=== PATIENT | male | born 1950 | race Caucasian/White ===

== ENCOUNTER → 2022-06-21 07:37 | Outpatient (BNVA) | payer MEDICARE, OTHER, SELFPAY | PROVIDERS: Visit Provider Otolaryngology | DX: E04.1 Nontoxic single thyroid nodule (principal); M25.462 Effusion, left knee | CPT/HCPCS: 73560; 73565; 99203 ==

== ENCOUNTER → 2022-06-27 07:49 | Outpatient (BNVA) | payer MEDICARE, OTHER, SELFPAY | PROVIDERS: Visit Provider Surgery | DX: Z12.11 Encounter for screening for malignant neoplasm of colon (principal) | CPT/HCPCS: 99203 ==

== ENCOUNTER 2022-07-03 08:23 | Outpatient (CLI) | payer MEDICARE, OTHER, SELFPAY ==
--- NOTE | 2022-07-03 | MR_ITS ---
WS: [id number] MRI BRAIN WITH AND WITHOUT CONTRAST HISTORY: SUBDURAL HEMATOMA COMPARISON: None available. TECHNIQUE: Multiplanar imaging performed through the brain with MultiHance 20 ml's IV. No acute infarcts are seen. Yancey-white matter differentiation is well preserved. Minimal small vessel ischemic type changes in the periventricular white matter. No prior infarct. No inferior displacemen t of cerebellar tonsils. No susceptibility artifacts or prior lacunar infarcts. Ventricles and extra-axial spaces are normal. Clivus and pituitary gland are normal. Visualized posterior fossa and brainstem are also normal. No enhancing masses. Small venous angiomas LEFT temporal lobe. Dural venous sinuses are normal. Paranasal sinuses: Well aerated with no significant disease. Mastoid air cells: Normal. Calvarium and scalp: Normal. MR/MR head wo/w con [id number] IMPRESSION: 1. No acute infarct and no acute hemorrhage. 2. Very minimal small vessel ischemic type changes. No large territory infarct . 3. LEFT temporal lobe venous angioma is x2. 4. No mass.
[2022-07-03] MEDS: gadobenate dimeglumine 20 mL vial IV (09:38)
== END 2022-07-03 08:24 | disposition home or self-care (01) ==
PROVIDERS: PCP Family Medicine; Visit Provider Family Medicine
DX: H53.2 Diplopia (principal)
CPT/HCPCS: 70553; A9577

== ENCOUNTER 2022-07-11 07:37 | Outpatient (CLI) | payer MEDICARE, OTHER, SELFPAY ==
--- NOTE | 2022-07-11 08:00 | US_ITS ---
WS: [id number] THYROID ULTRASOUND HISTORY: thyroid nodule COMPARISON: None available. Right lobe: 2.1 cm x 1.7 cm x 4.2 cm (w x ap x l). Volume: 7.6 cm3. Normal size gland. Colloid cyst anterior superior pole. There are a few additional colloid cysts with shadowing and a few scattered calcifications. Hypoechoic, subcentimeter nodules scattered within the gland. These nodules are less than a centimeter. Left lobe: 2.6 cm x 2.7 cm x 6.2 cm (w x ap x l). Volume: 22.5 cm3. Enlarged nodular thyroid. There is a large solid mass with a few scattered calcifications in the mid gland measuring 2.2 x 2.6 x 3.4 cm. No additional masses. Isthmus: 0.7 cm. US/US thyroid 82886 IMPRESSION: 1. Large solid mass mid to lower LEFT thyroid. Recommend fine-needle aspiratio n for cytology. 2. Subcentimeter RIGHT thyroid nodules. No additional evaluation necessary.
== END 2022-07-11 07:38 | disposition home or self-care (01) ==
LOC: RAD 07:41
PROVIDERS: PCP Family Medicine; Visit Provider Otolaryngology
DX: E04.1 Nontoxic single thyroid nodule (principal)
CPT/HCPCS: 76536

== ENCOUNTER 2022-07-13 05:44 | Day surgery (SDC) | payer MEDICARE, OTHER, SELFPAY ==
[2022-07-11 11:15] VITALS: BMI 27.1
[2022-07-13 06:01] VITALS: BP 144/92; PULSE 76; RESP 18; TEMP 36.4; O2SAT 95
[2022-07-13] MEDS: sodium chloride 0.9% 1,000 ML 30 ML IV (06:12)
--- NOTE | 2022-07-13 06:50 | W.PM.OPSUD ---
Surgery/Procedure H&P Update DATE OF PROCEDURE: July 13, 2022 DATE H&P PERFORMED: 06/27/22 H&P UPDATE INFORMATION: I have reviewed H&P completed within last 30 days, I have examined patient prior to procedure and No changes to prior documentation PLANNED PROCEDURE: Operation Date: 07/13/22 07:00 [place] Procedures p [id number] colon Z12.11(Not Applicable) - Bernardo Hernandez,
--- NOTE | 2022-07-13 06:55 | ANES.PREANE2 ---
Pre-Anesthetic Assessment Height/Weight: Height 1.83 m Weight 90.718 kg Temp Pulse Resp BP Pulse Ox O2 Del Method 97.6 F 76 18 144/92 95 Room Air 07/13/22 06:01 07/13/22 06:01 07/13/22 06:01 07/13/22 06:01 07/13/22 06:01 07/13/22 06:01 Preop Diagnosis: screening Operation Date: 07/13/22 07:00 Proposed Procedures p 16989 colon Z12.11(Not Applicable) - Bernardo Hernandez DO Familial anesthetic complications: none Was Beta Dale taken within 24 hours: Yes Was Clonidine taken within 24 hours: N/A Last intake: Intake Last Liquid Date 07/12/22 Last Liquid Time 19:00 Last Solid Date 07/11/22 Last Solid Time 16:00 Last Intake: 19:00 Social No alcohol and No tobacco Exam alert, oriented x 3, clear to auscultation bilaterally and regular rate & rhythm Airway Submandibular: within normal limits Cervical ROM: within normal limits Mallampati: Class I Dentition: full Pulmonary None reported CV/HEM Hypertension None reported Hepatic None reported GI None reported Metabolic Thyroid Disease (nodule) Musc/skel Lower Back Pain Neuropsych None reported Anesthetic Plan ASA status: 2 Anesthesia: MAC Risk of > 500 ml blood loss (7ml/kg in children): No Medications/Allergies Home Medications Medication Instructions Recorded Confirmed Last Taken Type atorvastatin 40 mg tablet 40 mg PO DAILY 06/21/22 07/13/22 07/12/22 History carvedilol 12.5 mg tablet 12.5 mg PO BID 06/21/22 07/13/22 07/12/22 History lisinopril 40 mg tablet 40 mg PO DAILY 06/21/22 07/13/22 07/12/22 History psyllium husk 0.4 gram capsule 0.4 g PO DAILY PRN Constipation 06/27/22 07/13/22 07/11/22 History (Metamucil) Allergies Allergy/AdvReac Type Severity Reaction Status Date / Time No Known Allergies Allergy Verified 06/27/22 07:54 Current Medications Generic Name Dose Route Start Last Admin Trade Name Freq PRN Reason Stop Dose Admin Sodium Chloride 1,000 mls @ 30 mls/hr 07/13/22 06:00 07/13/22 06:12 Sodium Chloride 0.9% IV 07/14/22 05:59 30 mls/hr .Q24H TED Administration PFSH Anesthesia Medical History (Updated 06/27/22 @ 08:35 by Bernardo Hernandez DO) Hx of subdural hematoma 2 yrs ago Hyperlipemia Hypertension Thyroid nodule Surgical History (Updated 06/27/22 @ 08:35 by Bernardo Hernandez DO) History of colon resection 4-5 years ago in [facility] Hx of cataract surgery bilateral also had floaters removed Hx of colonoscopy with polypectomy 4-5 year ago- [place] Family History Mother , age 59 Cancer melenoma Grandfather Cancer Father Cancer Grandmother Diabetes Social History Smoking and tobacco status: never smoked Alcohol intake: never Data Anesthesia Cardiac Studies: No Data to Display
[2022-07-13 07:22] VITALS: BP 92/65; PULSE 78; RESP 16; TEMP 36.6; O2SAT 93
[2022-07-13 07:30] VITALS: BP 88/62; PULSE 77; RESP 16; O2SAT 94
[2022-07-13 07:43] VITALS: BP 87/69; PULSE 76; RESP 18; O2SAT 93
--- NOTE | 2022-07-13 13:57 | ANE.PACU2 ---
Inpatient post-anesthesia follow up: Airway intact: Yes Vital signs: Temperature 97.9 F Pulse Rate 76 Respiratory Rate 18 Blood Pressure 87/69 Pulse Oximetry 93 Oxygen Delivery Me thod Room Air Oxygen Flow Rate 3.5 Fraction of Inspir ed Oxygen Hydration adequate: Yes Nausea and vomiting: No Pain level: 2 Mental status: Baseline
== END 2022-07-13 08:08 | disposition home or self-care (01) ==
PROVIDERS: PCP Family Medicine; Visit Provider Surgery
PROC: 0DJD8ZZ Inspection of Lower Intestinal Tract, Via Natural or Artificial Opening Endoscopic (ICD-10-PCS; CPT 45378; principal; 2022-07-13 07:00)
DX: Z12.11 Encounter for screening for malignant neoplasm of colon (principal); Z86.010 Personal history of colon polyps; E78.5 Hyperlipidemia, unspecified; E04.1 Nontoxic single thyroid nodule; Z80.0 Family history of malignant neoplasm of digestive organs; K63.5 Polyp of colon
CPT/HCPCS: 45385; J2704; J7030

== ENCOUNTER 2022-07-18 09:05 | Outpatient (CLI) | payer MEDICARE, OTHER, SELFPAY ==
--- NOTE | 2022-07-18 09:30 | CT_ITS ---
WS: [id number] CT LEFT KNEE, NONCONTRAST TECHNIQUE: Noncontrast CT of the LEFT knee to include the LEFT hip and ankle. [facility] CLINICAL INFORMATION: pre op planning COMPARISON: None. DLP: 1094.[address] scans at [facility] use at least one of these dose optimization techniques: automated e xposure control; mA and/or kV adjustment per patient size (includes targeted exams where dose is matc hed to clinical indication); or iterative reconstruction. FINDINGS: Advanced tricompartmental arthritis LEFT knee. Hypertrophic patella. Soft tissue edema about the LEFT knee. Moderate suprapatellar effusion. Hypertrophic changes along the joint line. Advanced joint spa ce narrowing worse medial joint compartment with subchondral sclerosis. Incidental fat-containing LEF T inguinal hernia. Sigmoid diverticulosis. Markedly enlarged prostate measuring 4.5 x 4.9 CM. Prostat e calcification. Moderate to advanced degenerative arthritis LEFT hip with subchondral cystic change. Small popliteal cyst with a few calcified loose bodies. CT/CT knee [facility] IMPRESSION: Images obtained for preoperative purposes. Markedly enlarged prostate measuring 4.5 x 4.9 CM. Recommend correlation PSA.
== END 2022-07-18 09:06 | disposition home or self-care (01) ==
LOC: RAD 09:09
PROVIDERS: PCP Family Medicine; Visit Provider Orthopaedic Surgery
DX: Z01.818 Encounter for other preprocedural examination (principal)
CPT/HCPCS: 73700

== ENCOUNTER 2022-08-18 06:36 | Outpatient (CLI) | payer MEDICARE, OTHER, SELFPAY | END 2022-08-18 06:37 | disposition home or self-care (01) | LOC: RADOUTREAD 09-01 06:37 | PROVIDERS: PCP Family Medicine; Visit Provider Orthopaedic Surgery | DX: Z01.818 Encounter for other preprocedural examination (principal); I44.0 Atrioventricular block, first degree; R00.1 Bradycardia, unspecified | CPT/HCPCS: 93005 ==

== ENCOUNTER 2022-08-28 10:24 | Observation (INO) | payer MEDICARE, OTHER, SELFPAY ==
--- NOTE | 2022-08-18 10:45 | ECG_ITS ---
[facility] Test Date: 2022-08-18 Pat Name: Yousuf Jaquez Department: Room: Gender: Male [employer]: : 1950 Requested By: Missael Fay Order Number: [id number] Anselmo MD: Ca Altman M.D. Measurements Intervals [place] Rate: 52 P: 26 ID: [id number] QRS: 22 QRSD: 97 T: 29 QT: 415 QTc: 388 Interpretive Statements SINUS BRADYCARDIA WITH FIRST DEGREE AV BLOCK LOW QRS VOLTAGE IN PRECORDIAL LEADS [QRS DEFLECTION < 1.0 mV IN CHEST LEADS] No previous ECG available for comparison Electronically Signed On 08-18-2022 12:30:40 CDT by Ca Altman M.D. [id number]
[2022-08-18 11:10] LABS: Basophils # 0.1 10^3/uL (0.0-0.1); Basophils % 1.1 %; Eosinophils # 0.3 10^3/uL (0.0-0.8); Eosinophils % 5.9 %; Hematocrit 42.6 % (42.0-52.0); Lymphocytes # 1.2 10^3/uL (0.8-4.8); Lymphocytes % 21.6 %; Mean Corpuscular HGB Conc 32.9 g/dL (30.0-36.0); Mean Corpuscular Hemoglobin 30.8 pg (28.0-34.0); Mean Corpuscular Volume 93.6 fl (80-94); Mean Platelet Volume 9.4 fL (7.4-10.4); Monocytes # 0.8 10^3/uL (0.2-0.9); Monocytes % 14.3 %; Neutrophils # 3.11 10^3/uL (1.8-7.7); Neutrophils % 56.9 %; Nucleated Red Blood Cells % 0 %; Platelet Count 179 10^3/cmm (130-400); Red Blood Count 4.55 10^6/uL (4.1-5.3); Red Cell Distribution Width 12.6 % (12.1-15.1); White Blood Count 5.5 10^3/uL (4.0-10.0)
[2022-08-18 11:28] LABS: Alanine Aminotransferase 21 U/L (0-41); Albumin Level 3.8 g/dL (3.5-5.2); Alkaline Phosphatase 116 U/L (40-130); Anion Gap 14.3 (5-19); Aspartate Amino Transferase 22 U/L (0-40); Blood Urea Nitrogen 11 mg/dL (8-23); Carbon Dioxide 22 mmol/L (22-29); Chloride 106 mmol/L (98-107); Globulin 1.9 g/dL (1.3-4.6); Glucose 89 mg/dL (65-115); Osmolality Calculated 285 mOsm/kg (285-295); Potassium 4.3 mmol/L (3.5-5.1); Sodium 138 mmol/L (136-145); Total Bilirubin 0.7 mg/dL (0.15-1.2); Total Protein 5.7 g/dL (6.6-8.7)
[2022-08-18 11:34] LABS: Creatinine Clr Calc Pharmacy 94.9291
[2022-08-18 11:59] LABS: Bacteria Urine TRACE /hpf; Bilirubin Urine Neg (Negative); Blood Urine Neg (Negative); Glucose Urine UA Norm (Normal); Ketones Urine Negative (Negative); Leukocyte Esterase Urine Negative (Negative); Nitrate Urine Negative (Negative); Protein Urine Neg (Negative); Specific Gravity, Urine 1.025 (1.005-1.030); Urine Appearance Clear (CLEAR); Urine Color Yellow (Yellow); Urobilinogen Urine Norm (Negative); WBC Urine 0-4 /hpf (0-5); pH Urine 5 (5-7)
--- NOTE | 2022-08-18 14:41 | P.ANESASSM_ITS ---
Pre-Anesthetic Assessment Height/Weight: Height 1.83 m Weight 90.718 kg Operation Date: 08/28/22 07:00 Proposed Procedures p left TKA roberto carlos/ [id number],M17.12(Left) - Missael Fay MD Familial anesthetic complications: none Was Beta Dale taken within 24 hours: Yes Was Clonidine taken within 24 hours: N/A Social No alcohol and No tobacco Exam alert, oriented x 3, clear to auscultation bilaterally and regular rate & rhythm Airway Submandibular: within normal limits Cervical ROM: within normal limits Mallampati: Class II Dentition: caps CV/HEM Hypertension Metabolic Hyperlipidemia Anesthetic Plan ASA status: 3 Anesthesia: Regional (specify below) (SAB with adductor blk) Medications/Allergies Home Medications Medication Instructions Recorded Confirmed Last Taken Type atorvastatin 40 mg tablet 40 mg PO DAILY 06/21/22 08/18/22 08/18/22 History carvedilol 12.5 mg tablet 12.5 mg PO BID 06/21/22 08/18/22 08/18/22 History lisinopril 40 mg tablet 40 mg PO DAILY 06/21/22 08/18/22 08/18/22 History psyllium husk 0.4 gram capsule 0.4 g PO DAILY PRN Constipation 06/27/22 08/18/22 08/18/22 History (Metamucil) Allergies Allergy/AdvReac Type Severity Reaction Status Date / Time No Known Allergies Allergy Verified 08/18/22 10:24 [facility] Anesthesia Medical History Hx of subdural hematoma 2 yrs ago Hyperlipemia Hypertension Thyroid nodule Surgical History History of colon resection 4-5 years ago in [facility] Hx of cataract surgery bilateral also had floaters removed Hx of colonoscopy with polypectomy 4-5 year ago- [place] Family History Mother , age 59 Cancer melenoma Grandfather Cancer Father Cancer Grandmother Diabetes Social History Smoking and tobacco status: never smoked Alcohol intake: never Data Anesthesia 08/18/22 10:48 08/18/22 10:48 Short CBC 08/18/22 Range/Units 10:48 WBC 5.5 (4.0-10.0) 10^3/uL Hgb 14.0 (11.7-16.6) g/dL Hct 42.6 (42.0-52.0) % MCV 93.6 (80-94) fl Plt Count 179 (130-400) 10^3/cmm Neut % (Auto) 56.9 % Neut # (Auto) 3.11 (1.8-7.7) 10^3/uL BMP 08/18/22 10:48 Sodium 138 Potassium 4.3 Chloride 106 Carbon Dioxide 22 BUN 11 Creatinine 0.6 L Glucose 89 Calcium 9.0 Liver Function 08/18/22 Range/Units 10:48 Total Bilirubin 0.7 (0.15-1.2) mg/dL AST 22 (0-40) U/L ALT 21 (0-41) U/L Alkaline Phosphatase 116 (40-130) U/L Albumin 3.8 (3.5-5.2) g/dL Urine 08/18/22 Range/Units 10:48 Urine Color Yellow (Yellow) Urine Appearance Clear (CLEAR) Urine pH 5 (5-7) Ur Specific [place] 1.025 (1.005-1.030) Urine Protein Neg (Negative) Urine Glucose (UA) Norm (Normal) Urine Ketones Negative (Negative) Urine Nitrate Negative (Negative) Urine Bilirubin Neg (Negative) Ur Leukocyte Esterase Negative (Negative) Urine RBC None (0-2) /hpf Urine WBC 0-4 H (0-5) /hpf Cardiac Studies: No Data to Display
[2022-08-28] VITALS (20 sets, daily range): BP systolic 116–166; BP diastolic 62–91; PULSE 53–87; RESP 12–18; TEMP 36.3–36.8; O2SAT 90–99
[2022-08-28] MEDS: sodium chloride 0.9% 1,000 ML 30 ML IV (05:53)
[2022-08-28] MEDS: acetaminophen 500 mg Tablet 1000 MG PO ×3 (05:56→21:09)
[2022-08-28] MEDS: gabapentin 300 mg Capsule PO (05:57)
[2022-08-28] MEDS: oxyCODONE 20 mg ER (12 HR) Tablet PO (05:58)
[2022-08-28] MEDS: CELEcoxib 200 mg Capsule 400 MG PO (05:59)
--- NOTE | 2022-08-28 06:49 | P.ANESUD_ITS ---
Pre-Anesthetic Update Pre-Anesthetic Assessment: Date of Surgery/Procedure: 08/28/22 Preop Jigna gnosis: Osteoarthritis left knee Proposed Procedure: Operation Date: 08/28/22 07:00 Proposed Procedures p left TKA roberto carlos/ [id number],M17.12(Left) - Missael Fay MD Any changes to Pre-Anesthetic Assessment?: No Last Intake: Intake Last Liquid Date 08/27/22 Last Liquid Time 18:30 Last Solid Date 08/27/22 Last Solid Time 14:00 Vitals: Temperature 97.8 F 08/28/22 05:42 Temperature Source Temporal Artery S can 08/28/22 05:42 Pulse Rate 60 08/28/22 05:42 Respiratory Rate 16 08/28/22 05:58 Respiratory Effort Spontaneous 08/28/22 05:58 Respiratory Depth Normal 08/28/22 05:58 Respiratory Patter n Normal 08/28/22 05:58 Blood Pressure 166/85 08/28/22 05:42 Blood Pressure Tamra n 112 08/28/22 05:42 Pulse Oximetry 95 08/28/22 05:58 Oxygen Delivery Me thod Room Air 08/28/22 05:42 Exam: Pre-Anes Outpt Exam: alert, oriented x 3, clear to auscultation bilaterally and regular rate & rhythm Cardiac Studies: No Data to Display
--- NOTE | 2022-08-28 06:50 | ANES.PROC ---
Anesthesia Procedures Procedure/Date: 08/28/22 Nerve Block ^: Nerve Block 1: Main Anesthesia: spinal anesthesia block Time Out Performed: Yes Consent: requested by attending/covering physician, from patient, from other, risks and benefits reviewed and patient agrees to proceed Nerve block location: adductor canal (L) Anesthesia monitors applied: pulse oximetry, EKG, BP cuff and oxygen Nerve block position: supine Anesthetic Used: ropivicaine 0.5% (30 ml) and with decadron ( 4 mg) Ultrasound used to: visualize and ID femerol nerve Nerve Stimulator Used?: No Interscalene/Femoral BLK: 4 stimuplex 21 g needle used for position and inplane approach, visualize local anesthetic spread and no vascular puncture identified Injection: neg aspiration of heme Patient Tolerated Procedure: well Complications: none
--- NOTE | 2022-08-28 06:52 | W.PM.OPSFHP ---
Same Day Surgery H&P Indication for Procedure/HPI DATE OF PROCEDURE: August 28, 2022 CHIEF COMPLAINT/INDICATIONFOR SURGICAL PROCEDURE: Osteoarthritis left knee here for total knee arthroplasty PREOP DIAGNOSIS: Osteoarthritis left knee PLANNED PROCEDURE: Operation Date: 08/28/22 07:00 Proposed Procedures p left TKA roberto carlos/ [id number],M17.12(Left) - Missael Fay MD 72-year-old male with left knee pain for years. Pain is typically medial and worse with ambulating and walking. Has failed to improve with medication and injections. Recurrent bouts of instability. Resulting in loss of quality life here for total knee arthroplasty Medications/Allergies* Home Medications Medication Instructions Recorded Confirmed Type atorvastatin 40 mg tablet 40 mg PO DAILY 06/21/22 08/28/22 History carvedilol 12.5 mg tablet 12.5 mg PO BID 06/21/22 08/18/22 History lisinopril 40 mg tablet 40 mg PO DAILY 06/21/22 08/28/22 History psyllium husk 0.4 gram capsule 0.4 g PO DAILY PRN Constipation 06/27/22 08/28/22 History (Metamucil) Allergies/Adverse Reactions Allergy/AdvReac Type Severity Reaction Status Date / Time No Known Allergies Allergy Verified 08/18/22 10:24 Current Medications: Generic Name Dose Route Start Last Admin Trade Name Freq PRN Reason Stop Dose Admin Sodium Chloride 1,000 mls @ 30 mls/hr 08/28/22 05:30 08/28/22 05:53 Sodium Chloride 0.9% IV 08/29/22 05:29 30 mls/hr .Q24H TED Administration Pertinent History/Comorbid Conditions* Medical History (Updated 06/27/22 @ 08:35 by Bernardo Hernandez DO) Hx of subdural hematoma 2 yrs ago Hyperlipemia Hypertension Thyroid nodule Surgical History (Updated 06/27/22 @ 08:35 by Bernardo Hernandez DO) History of colon resection 4-5 years ago in [facility] Hx of cataract surgery bilateral also had floaters removed Hx of colonoscopy with polypectomy 4-5 year ago- [place] Family History (Updated 06/27/22 @ 08:07 by JEANETTE Peralta) Grandfather Mother, age 59 Diabetes Grandmother Cancer Mother melenoma Grandfather Father Social History Smoking and tobacco status: never smoked Alcohol intake: never Pertinent Exam Findings alert, oriented x 3, clear to auscultation bilaterally and regular rate & rhythm Varus alignment. Tenderness medial joint line. Motion 10 to 120 degrees. No distal neurovascular deficits I can appreciate Recommendations Surgery/Procedure today Coding Level of Care Code Acute Code for Chg Fwd Diagnoses
[2022-08-28] MEDS: ceFAZolin 2,000 MG in sodium chloride 0.9% (plus) 50 ML 100 MG IV ×3 (07:45→22:57)
[2022-08-28] MEDS: tranexamic acid 1,000 mg/10mL SDV 1000 MG IV (07:54)
[2022-08-28] MEDS: tranexamic acid 1,000 mg/10mL SDV 1000 MG IRRIGATION (08:08)
[2022-08-28] MEDS: EPINEPHrine 1 mg/mL INJ XX (08:08)
[2022-08-28] MEDS: ketorolac 30 mg/mL INJ XX (08:08)
[2022-08-28] MEDS: sodium chloride 0.9% 100 mL Bag XX (08:10)
--- NOTE | 2022-08-28 09:40 | PM.OP ---
Operative Report Date of procedure: August 28, 2022 Pre-op diagnosis: Preop Diagnosis Osteoarthritis left knee Post-op diagnosis: same Post-op diagnosis: Same Post-op findings: Same Procedure done: Left total knee arthroplasty Implants: [place] Triathalon total knee arthroplasty components were used includin) Size 8 triathalon cruciate retaining femoral component 2) Size 8 Tritanium tibial component 3) Size 8/9 mm thickness CS tibial bearing insert Pathology: none sent Surgeon: Missael Fay Commercial Loan Analyst: Perez Sanchez Commercial Loan Analyst: The nurse practitioner the nurse practitioner assisted with critical portions of the case including positioning, draping, exposure, component implantation, closure and dressing application and is present through the entirety of the case. Anesthesia: Nerve Block (Spinal, adductor canal block) Estimated blood loss (mL): 150 Findings: The patient eburnated bone over the medial femoral condyle and medial tibial plateau. There was minimal patellar chondromalacia and the patella articulated well with the trochlear groove of the femoral component. Condition: stable Disposition: PACU Brief History: Mr. Jaquez is a 72-year-old male with chronic left knee pain attributable to osteoarthritis. He failed conservative measures including medication and corticosteroid injections. Procedure: The patient was taken to the operating room. Patient was given 1 g of tranexamic acid and 2 g of Ancef. The above anesthesia provided by the anesthesia service. A timeout was performed. The patient was prepped and draped in the usual fashion with the lower extremity exposed. A anterior incision was made, midline, from a point proximal to the patella to the distal tibial tubercle. The knee was entered through a medial parapatellar approach. The patella could be displaced laterally and the knee flexed. The patellar fat pad was resected to provide better visibility. Retractors were placed medially and laterally adjacent to the tibial plateau. At a point approximately 8 cm above the patella, 2 small incisions were made with a scalpel blade and 2 long threaded pins were placed into the anterior medial femur engaging both cortices. The femoral arrays were placed over these pins and secured. At a point 8 cm distal to the tibial tubercle. 2 shorter bicortical threaded pins were placed across the anterior medial tibia and the tibial arrays placed. A checkpoint was made just proximal and medial to the medial femoral condyle and just medial to the tibial plateau. Small osteotomes were placed in the joint in both flexion and extension to determine ligamentous laxity. The femur was placed in an additional 2 degrees of external rotation to accommodate medial tightness in flexion. The [employer] robot was then introduced to the field and the femur and tibia cut in accordance with our plan. Lecture cautery was then applied across the posterior capsule for additional hemostasis. he posterior capsule and collateral ligaments were then injected with a solution of 100 mL of 0.2% ropivacaine, 1 mL of a 1:1000 epinephrine solution, 30 mg of Toradol, and 1 g of tranexamic acid. A trial with the above components provided excellent stability and balance through a full range of motion. A gentamicin irrigation solution of 160 mg gentamicin and in 100 mL of normal saline was used during bone cuts and to irrigate surfaces before implantation of components. The femur was then prepared for the femoral pegs of the component in the tibia for the tibial component. The femur and tibia were then press-fit into place. An osteotome was used to remove the lateral 8 mm of the patella to minimize chances of later impingement. A neurectomy was accomplished circumferentially about the patella with electrocautery and lateral osteophytes removed. Surfaces were cleaned with a gentamicin solution. The femur and tibia were then press-fit into place. Tinal polyethylene component was then snapped into place into the tibia. The knee was then soaked in a 0.35% solution. Excessive betadine was removed with suction. The extensor retinaculum was closed with a running 1 Stratafix interrupted 1 Ethibond. The subcutaneous tissues were closed with 2-0 Vicryl and the skin was closed with a running 4-0 Stratafix. The wound was covered with a Dermabond Prineo dressing. It was covered with 4xrs and a compressive Tubigauze was applied. The patient was taken to recovery room in stable condition.
--- NOTE | 2022-08-28 09:56 | PC.NURSE ---
Pt arrived to PACU, resting comfortably, O2 at 6L/min via simple mask in place. Dressing to left knee C/D/I, left foot p/w/d, cap refill <3 seconds, good pedal pulse noted, able to wiggle toes. Ice pack applied. Foot pump to right foot in place and running.
--- NOTE | 2022-08-28 10:08 | XRR_ITS ---
PROCEDURE INFORMATION: Exam: XR Right Knee Exam date and time: 08/28/2022 9:14 AM Age: 72 years old Clinical indication: Device placement; Joint replacement hardware; Prior surgery; Surgery date: Post-operative (0-2 days); Surgery type: Right total knee arthroplasty TECHNIQUE: Imaging protocol: Radiologic exam of the right knee. Views: 1 or 2 views. COMPARISON: No relevant prior studies available. FINDINGS: Bones/joints: Metallic knee replacement is present in good position. The components do not show evidence of loosening. No acute bony abnormalities seen. Soft tissues: Normal. XR/XR knee RT 1-2V [id number] IMPRESSION: 1. Metallic knee replacement in good position 2. Otherwise No acute findings.
[2022-08-28] MEDS: fentaNYL 50 mcg/mL INJ 2mL IVP (10:10)
--- NOTE | 2022-08-28 10:18 | PC.NURSE ---
X ray obtained at this time.
[2022-08-28] MEDS: sodium chloride 0.9% 1,000 ML 100 ML IV ×2 (10:59→21:10)
[2022-08-28] MEDS: oxyCODONE 5 mg IR Tab/Cap PO ×2 (11:43→23:03)
--- NOTE | 2022-08-28 13:32 | ANE.PACU2 ---
Inpatient post-anesthesia follow up: Airway intact: Yes Vital signs: Temperature 97.7 F Pulse Rate 72 Respiratory Rate 18 Blood Pressure 137/80 Pulse Oximetry 95 Oxygen Delivery Me thod Nasal Cannula Oxygen Flow Rate 2 Fraction of Inspir ed Oxygen Hydration adequate: Yes Nausea and vomiting: Yes Pain level: 2 Mental status: Baseline
[2022-08-28] MEDS: sennosides-docusate Tablet 2 TAB PO (17:28)
[2022-08-28] MEDS: CELEcoxib 200 mg Capsule PO (17:29)
[2022-08-28] MEDS: carvedilol 12.5 mg Tablet PO (21:09)
[2022-08-29 03:35] LABS: Hemoglobin 12.1 g/dL (11.7-16.6)
[2022-08-29 03:57] VITALS: BP 131/53; PULSE 92; RESP 18; TEMP 36.9; O2SAT 96
[2022-08-29] MEDS: acetaminophen 500 mg Tablet 1000 MG PO (05:03)
[2022-08-29] MEDS: CELEcoxib 200 mg Capsule PO (05:03)
[2022-08-29 07:52] VITALS: BP 133/75; PULSE 58; RESP 16; TEMP 36.8; O2SAT 93
--- NOTE | 2022-08-29 07:52 | PM.DCS ---
Discharge Providers Date of Admission: 08/28/22 10:24 Date of Discharge: August 29, 2022 Attending Provider at Admission: Missael Fay MD Attending Provider at Discharge: Missael Fay MD Primary Care Provider: Tej Alvarez Diagnoses at Discharge Discharge Diagnosis (1) Status post left knee replacement: Status: Acute (2) Osteoarthritis of left knee: Status: Resolved Reason for Visit Reason for Visit: M17.12 Brief History: 72-year-old male with years of chronic left knee pain. Medicine for left total knee arthroplasty Hospital Course Hospital Course The patient tolerated surgery well. They remained hemodynamically stable. They was begun on aspirin and foot pumps for DVT prophylaxis. The patient was mobilized with therapy beginning the day of surgery and by the first postoperative day independent with the walker. As the pain was adequately controlled and they were fully mobile they were discharged home. Physical Exam Narrative: On the day of discharge the knee incision was clean. They had no drainage. There is minimal swelling in the thigh and knee and the calf. No distal neurovascular deficits were noted Discharge Data Studies Completed and Pending Completed Studies During Hospitalization Category Date Time Status XR knee RT 1-2V 63277 Routine Exams 08/28/22 10:08 Completed Radiology Impressions Knee X-Ray 08/28/22 10:08 IMPRESSION: 1. Metallic knee replacement in good position 2. Otherwise No acute findings. Laboratory Results WBC 5.5 10^3/uL (4.0-10.0) 08/18/22 10:48 RBC 4.55 10^6/uL (4.1-5.3) 08/18/22 10:48 Hgb 12.1 g/dL (11.7-16.6) 08/29/22 03:03 Hct 42.6 % (42.0-52.0) 08/18/22 10:48 MCV 93.6 fl (80-94) 08/18/22 10:48 MCH 30.8 pg (28.0-34.0) 08/18/22 10:48 MCHC 32.9 g/dL (30.0-36.0) 08/18/22 10:48 RDW 12.6 % (12.1-15.1) 08/18/22 10:48 Plt Count 179 10^3/cmm (130-400) 08/18/22 10:48 MPV 9.4 fL (7.4-10.4) 08/18/22 10:48 Neut % (Auto) 56.9 % 08/18/22 10:48 Lymph % (Auto) 21.6 % 08/18/22 10:48 Jack % (Auto) 14.3 % 08/18/22 10:48 Eos % (Auto) 5.9 % 08/18/22 10:48 Baso % (Auto) 1.1 % 08/18/22 10:48 Neut # (Auto) 3.11 10^3/uL (1.8-7.7) 08/18/22 10:48 Lymph # (Auto) 1.2 10^3/uL (0.8-4.8) 08/18/22 10:48 Jack # (Auto) 0.8 10^3/uL (0.2-0.9) 08/18/22 10:48 Eos # (Auto) 0.3 10^3/uL (0.0-0.8) 08/18/22 10:48 Baso # (Auto) 0.1 10^3/uL (0.0-0.1) 08/18/22 10:48 Nucleated RBC % (auto) 0 % 08/18/22 10:48 Nucleated RBCs # 0.0 /100WBC 08/18/22 10:48 Sodium 138 mmol/L (136-145) 08/18/22 10:48 Potassium 4.3 mmol/L (3.5-5.1) 08/18/22 10:48 Chloride 106 mmol/L (98-107) 08/18/22 10:48 Carbon Dioxide 22 mmol/L (22-29) 08/18/22 10:48 Anion Gap 14.3 (5-19) 08/18/22 10:48 BUN 11 mg/dL (8-23) 08/18/22 10:48 Creatinine 0.6 mg/dL (0.7-1.2) L 08/18/22 10:48 GFR Calculation Not Reportable 08/18/22 10:48 Glucose 89 mg/dL (65-115) 08/18/22 10:48 Calculated Osmolality 285 mOsm/kg (285-295) 08/18/22 10:48 Calcium 9.0 mg/dL (8.5-10.5) 08/18/22 10:48 Total Bilirubin 0.7 mg/dL (0.15-1.2) 08/18/22 10:48 AST 22 U/L (0-40) 08/18/22 10:48 ALT 21 U/L (0-41) 08/18/22 10:48 Alkaline Phosphatase 116 U/L (40-130) 08/18/22 10:48 Total Protein 5.7 g/dL (6.6-8.7) L 08/18/22 10:48 Albumin 3.8 g/dL (3.5-5.2) 08/18/22 10:48 Globulin 1.9 g/dL (1.3-4.6) 08/18/22 10:48 Urine Color Yellow (Yellow) 08/18/22 10:48 Urine Appearance Clear (CLEAR) 08/18/22 10:48 Urine pH 5 (5-7) 08/18/22 10:48 Ur Specific [place] 1.025 (1.005-1.030) 08/18/22 10:48 Urine Protein Neg (Negative) 08/18/22 10:48 Urine Glucose (UA) Norm (Normal) 08/18/22 10:48 Urine Ketones Negative (Negative) 08/18/22 10:48 Urine Blood Neg (Negative) 08/18/22 10:48 Urine Nitrate Negative (Negative) 08/18/22 10:48 Urine Bilirubin Neg (Negative) 08/18/22 10:48 Urine Urobilinogen Norm mg/dL (Negative) 08/18/22 10:48 Ur Leukocyte Esterase Negative (Negative) 08/18/22 10:48 Urine RBC None /hpf (0-2) 08/18/22 10:48 Urine WBC 0-4 /hpf (0-5) H 08/18/22 10:48 Ur Squamous Epith Cells None /hpf (0-5) 08/18/22 10:48 Amorphous Sediment Not Reportable 08/18/22 10:48 Urine Bacteria Trace /hpf (NONE) 08/18/22 10:48 Vitals Last Vital Signs Temp 98.2 F 08/29/22 07:52 Pulse 58 L 08/29/22 07:52 Resp 16 08/29/22 07:52 BP 133/75 08/29/22 07:52 Pulse Ox 93 08/29/22 07:52 O2 Del Method Room Air 08/29/22 03:57 O2 Flow Rate 2 08/28/22 12:50 Discharge Plan Discharge Patient Disposition: Home Condition: Stable Prescriptions: New oxycodone 5 mg Tablet 5 mg PO Q4H PRN (Reason: Moderate Pain) 7 Days Qty: 30 0RF acetaminophen 500 mg Tablet 1,000 mg PO Q8H 14 Days Qty: 84 0RF aspirin 325 mg Tablet,Delayed Release (Dr/Ec) 325 mg PO DAILY 30 Days Qty: 30 0RF celecoxib 200 mg Capsule 200 mg PO Q12H 14 Days Qty: 28 0RF Continued carvedilol 12.5 mg tablet 12.5 mg PO BID Rx Instructions: must administer with a meal/food lisinopril 40 mg tablet 40 mg PO DAILY atorvastatin 40 mg tablet 40 mg PO DAILY psyllium husk [Metamucil] 0.4 gram capsule 0.4 g PO DAILY PRN (Reason: Constipation) Discharge Orders: Discharge Order (Routine); Ordered 08/29/22 Ordered By: Missael Fay Other Ambulatory Orders: DME: [facility] (Order) Location: None Selected Ordered By: Missael Fay Referrals: Perez Sanchez FNP [[facility]] - 09/01/22 9:00 am Discharge Diet: Advance as tolerated Discharge Activity: Limit activity as instructed Patient Instructions: Opioid Safety Activity Restrictions/Additional Instructions: Okay to shower Keep Tubigauze sleeve in place for swelling. Okay to remove for hygiene. Apply FirstIce up to 20 min/hr for pain and swelling Take Celebrex twice a day for the next 15 days for pain , discontinue other anti-inflammatories Take Tylenol 500mg (2 tabs) as needed 3 times a day for mild pain take oxycodone for breakthrough pain. Exercises per physical therapy. May weight-bear as tolerated on total knee arthroplasty IF HAVE ANY PROBLEMS OR QUESTIONS CALL [facility] AT AND ASK TO HAVE DR. RAYMOND JAMESON. Discharge Attestations Time Spent in Discharge Care*: other Quality Metrics Clinical Quality Measures [ No reported AMI, CVA or VTE this stay] Coding Level of Care Code Acute Code for Chg Fwd Diagnoses Status post left knee replacement Z96.652 Osteoarthritis of left knee M17.12
[2022-08-29 08:00] VITALS: PULSE 58; O2SAT 93
[2022-08-29] MEDS: sennosides-docusate Tablet 2 TAB PO (10:59)
[2022-08-29] MEDS: aspirin 325 mg EC Tablet PO (10:59)
[2022-08-29] MEDS: atorvastatin 40 mg Tablet PO (10:59)
[2022-08-29] MEDS: lisinopril 20 mg Tablet 40 MG PO (10:59)
[2022-08-29] MEDS: carvedilol 12.5 mg Tablet PO (11:02)
--- NOTE | 2022-08-29 11:20 | PC.NURSE ---
IV out, persona walker delivered by Home. Pt requesting to eat lunch prior to discharge.
[2022-08-29 12:29] VITALS: PULSE 58; O2SAT 93
== END 2022-08-29 12:33 | disposition home health service (06) ==
LOC: MEDSURG 10:24
PROVIDERS: Admitting Provider Orthopaedic Surgery; PCP Family Medicine; Visit Provider Orthopaedic Surgery
PROC: 8E0Y0CZ Robotic Assisted Procedure of Lower Extremity, Open Approach (ICD-10-PCS; CPT 27447; principal; 2022-08-28 07:00)
DX: M17.12 Unilateral primary osteoarthritis, left knee (principal); E78.5 Hyperlipidemia, unspecified; I10 Essential (primary) hypertension; E04.1 Nontoxic single thyroid nodule
CPT/HCPCS: 27447; 36415; 73560; 80053; 81001; 85018; 85025; 97110; 97116; 97161; 97165; C1713; C1776; G0378; J0171; J0690; J1100; J1580; J1885; J2250; J2405; J2704; J2795; J3010; J3490; J7030

== ENCOUNTER → 2022-09-05 07:50 | Outpatient (BNVA) | payer MEDICARE, OTHER, SELFPAY | PROVIDERS: PCP Family Medicine; Visit Provider Nurse Practitioner Family | DX: Z96.652 Presence of left artificial knee joint (principal) | CPT/HCPCS: 99024 ==

== ENCOUNTER 2022-09-18 06:00 | Outpatient (RCR) | payer MEDICARE, OTHER, SELFPAY | END 2022-09-22 23:59 | disposition home or self-care (01) | LOC: MPT 06:00 | PROVIDERS: Visit Provider Nurse Practitioner Family | DX: Z96.652 Presence of left artificial knee joint (principal) | CPT/HCPCS: 97110; 97161; G0283 ==

== ENCOUNTER 2022-09-23 06:00 | Outpatient (RCR) | payer MEDICARE, OTHER, SELFPAY | END 2022-10-23 23:59 | disposition home or self-care (01) | LOC: MPT 06:00 | PROVIDERS: Visit Provider Nurse Practitioner Family | DX: Z47.89 Encounter for other orthopedic aftercare (principal) | CPT/HCPCS: 97110; 97116; G0283 ==

== ENCOUNTER → 2022-10-04 07:57 | Outpatient (BNVA) | payer MEDICARE, OTHER, SELFPAY | PROVIDERS: Visit Provider Nurse Practitioner Family | DX: Z96.652 Presence of left artificial knee joint (principal) | CPT/HCPCS: 73560; 73565; 99024; 99213 ==

== ENCOUNTER 2022-10-24 06:00 | Outpatient (RCR) | payer MEDICARE, OTHER, SELFPAY | END 2022-11-23 23:59 | disposition home or self-care (01) | LOC: MPT 06:00 | PROVIDERS: Visit Provider Nurse Practitioner Family | DX: Z47.89 Encounter for other orthopedic aftercare (principal) | CPT/HCPCS: 97110; 97530; G0283 ==

== ENCOUNTER 2022-11-24 06:00 | Outpatient (RCR) | payer MEDICARE, OTHER, SELFPAY | END 2022-12-23 23:59 | disposition home or self-care (01) | LOC: MPT 06:00 | PROVIDERS: Visit Provider Nurse Practitioner Family | DX: Z47.89 Encounter for other orthopedic aftercare (principal) | CPT/HCPCS: 97110; G0283 ==

== ENCOUNTER → 2022-12-05 08:18 | Outpatient (BNVA) | payer MEDICARE, OTHER, SELFPAY | PROVIDERS: Visit Provider Nurse Practitioner Family | DX: Z96.652 Presence of left artificial knee joint (principal) | CPT/HCPCS: 73560; 73565; 99213 ==

== ENCOUNTER → 2023-03-29 08:32 | Outpatient (BNVA) | payer MEDICARE, OTHER, SELFPAY | PROVIDERS: PCP Family Medicine; Visit Provider Physician Assistant | DX: Z96.652 Presence of left artificial knee joint (principal) | CPT/HCPCS: 73560; 73565; 99213 ==

== ENCOUNTER → 2023-10-11 08:49 | Outpatient (BNVA) | payer MEDICARE, OTHER, SELFPAY | PROVIDERS: PCP Family Medicine; Visit Provider Physician Assistant | DX: Z96.652 Presence of left artificial knee joint (principal) | CPT/HCPCS: 73560; 73565; 99213 ==

== ENCOUNTER 2023-10-29 13:34 | Outpatient (CLI) | payer MEDICARE, OTHER, SELFPAY ==
--- NOTE | 2023-10-29 14:00 | CT_ITS ---
WS: [id number] CT LEFT KNEE, NONCONTRAST HISTORY: left knee pain, prior arthroplasty. Technique: All CT scans at [facility] use at least one of these dose optimization techniques: automated exposure control; mA and/or kV adjustment per patient size (includes targeted exams where dose is matched to clinical indication); or iterative reconstruction. DLP: 462.69 mGy.cm COMPARISON: Radiograph 10/11/2023 Status post LEFT knee arthroplasty. The arthroplasty components are causing a significant amount of a rtifact. There is no obvious displacement. No loose body or fracture. Patella with mild lateral sublu xation but otherwise in normal position. There is a 6 moderate to large suprapatellar effusion. Knee alignment appears appropriate. No loosening around the plates. CT/CT knee LT wo con* [id number] IMPRESSION: 1. Significant artifact obscuring detail from the arthroplasty. 2. No malalignment of the arthroplasty components. No loosening. 3. There is a moderate to large suprapatellar effusion.
== END 2023-10-29 13:35 | disposition home or self-care (01) ==
LOC: RAD 13:35
PROVIDERS: PCP Family Medicine; Visit Provider Physician Assistant
DX: Z96.652 Presence of left artificial knee joint (principal); M25.462 Effusion, left knee
CPT/HCPCS: 73700

== ENCOUNTER → 2024-01-01 10:20 | Outpatient (BNVA) | payer MEDICARE, OTHER, SELFPAY | PROVIDERS: PCP Family Medicine; Visit Provider Student in an Organized Health Care Education/Training Program | DX: Z96.652 Presence of left artificial knee joint (principal); M06.4 Inflammatory polyarthropathy | CPT/HCPCS: 36415; 85025; 85651; 86140 ==

== ENCOUNTER 2024-02-14 08:06 | Outpatient (CLI) | payer MEDICARE, OTHER, SELFPAY ==
--- NOTE | 2024-02-14 08:45 | NM_ITS ---
WS: [id number] NUCLEAR MEDICINE BONE SCAN THREE-PHASE Radiopharmaceutical: 26.2 Tc-99m MDP mCi IV Injection site: Antecubital Postinjection imaging delay: 2 hour CLINICAL INFORMATION: p/o left knee arthroplasty increased pain and swelling COMPARISON: CT 10/29/2023 FINDINGS: Postoperative changes LEFT TKA. Increased blood flow and blood pool activity about the LEFT knee appe ars to correspond to the suprapatellar effusion. Recommend correlation for inflammatory or infectious effusion. Increased blood flow and blood pool activity about the prosthesis with delayed bony activity most lik fabian due to normal bony remodeling due to recent TKA. Osteomyelitis or loosening is less likely. Soft tissue contours: Normal. Kidneys: Normal. Other findings: S-shaped thoracolumbar scoliosis. Degenerative type uptake involving the spine. Degen erative type uptake involving the AC joints, RIGHT greater trochanter, and RIGHT knee. NM/NM bone 3 phase [id number] IMPRESSION: 1. Increased periprosthetic uptake about the LEFT knee most likely due to cont inued bony remodeling from recent TKA. Osteomyelitis or loosening is less likel y in this early postoperative setting. Recommend correlation with fluid samplin g. 2. Increased blood flow and blood pool activity corresponding to the suprapate llar effusion. Recommend correlation for infectious or inflammatory suprapatell ar effusion.
== END 2024-02-14 08:07 | disposition home or self-care (01) ==
LOC: RAD 08:07
PROVIDERS: PCP Family Medicine; Visit Provider Student in an Organized Health Care Education/Training Program
DX: Z96.652 Presence of left artificial knee joint (principal); M17.12 Unilateral primary osteoarthritis, left knee
CPT/HCPCS: 78315; A9561

== ENCOUNTER 2024-03-04 11:21 | Outpatient (CLI) | payer MEDICARE, OTHER, SELFPAY | END 2024-03-04 11:22 | disposition home or self-care (01) | LOC: SPT 11:22 | PROVIDERS: PCP Family Medicine; Visit Provider Student in an Organized Health Care Education/Training Program | DX: Z47.89 Encounter for other orthopedic aftercare (principal); M25.562 Pain in left knee; Z96.652 Presence of left artificial knee joint | CPT/HCPCS: 20610; 97760; L1812 ==

== ENCOUNTER → 2024-04-08 08:06 | Outpatient (BNVA) | payer MEDICARE, OTHER, SELFPAY | PROVIDERS: PCP Family Medicine; Visit Provider Student in an Organized Health Care Education/Training Program | DX: M76.32 Iliotibial band syndrome, left leg (principal); T84.84XA Pain due to internal orthopedic prosthetic devices, implants and grafts, initial encounter; Z96.652 Presence of left artificial knee joint; R03.0 Elevated blood-pressure reading, without diagnosis of hypertension; X58.XXXA Exposure to other specified factors, initial encounter | CPT/HCPCS: 99213 ==

== ENCOUNTER → 2024-08-05 08:02 | Outpatient (BNVA) | payer MEDICARE, OTHER, SELFPAY | PROVIDERS: PCP Family Medicine; Visit Provider Student in an Organized Health Care Education/Training Program | DX: Z96.652 Presence of left artificial knee joint (principal); T84.84XA Pain due to internal orthopedic prosthetic devices, implants and grafts, initial encounter; M76.32 Iliotibial band syndrome, left leg; Y79.2 Prosthetic and other implants, materials and accessory orthopedic devices associated with adverse incidents | CPT/HCPCS: 99214 ==